=== PATIENT | female | born 1985 | race Caucasian/White ===

== ENCOUNTER 2016-04-11 14:55 | Inpatient (IN) | payer OTHER ==
[2016-04-11 16:08] VITALS: BMI 19.3
--- NOTE | 2016-04-11 17:10 | HP ---
Admission [facility] Chief Complaint: REHAB TX FOR DRUG DEPENDENCE Allergies/Adverse Reactions: Allergies Allergy/AdvReac Type Severity Reaction Status Date / Time No Known Allergies Allergy Verified 04/11/16 16:28 History of Present Illness: 31 Y/O FEMALE WITH A HX OF AMPHETAMINE DEPENDENCE AND ON SUBOXONE MAINTENANCE. Exam Limitations: No Limitations - Ebola screening Have you traveled outside of the country in the last 21 days: No Have you had contact with anyone from an Ebola affected area: No Have you been sick,other than usual withdrawal symptoms: No Do you have a fever: No - Review of Systems Constitutional: Chills, Loss of Appetite, Night Sweats, Changes in sleep, Unintentional Wgt. Loss EENT: reports: Blurred Vision, Tearing, Nose Congestion, Dental Problems (TEETH EXTRACTIONS/TOOTH IMPACTION REMOVED/WEARS BRACES) Respiratory: reports: Wheezing (SOMETIMES - WHEN SMOKING EXCESSIVELY OVER A PACK /DAY.) Cardiac: reports: Chest Pain, Lightheadedness, Palpitations, Chest Tightness ( DUE TO ANXIETY), Other (TIGHT THROAT) GI: reports: Diarrhea, Poor Appetite, Poor Fluid Intake, Abdominal cramping : reports: Dysuria (AND DARK URINE) Musculoskeletal: reports: Back Pain, Joint Pain, Muscle Pain, Neck Pain Integumentary: reports: Bruising (BLACK/BLUE ON LEFT WRIST/ANTECUBITAL SPACE.) Neuro: reports: Headache, Tremors, Unsteady Gait, Dizziness Endocrine: reports: No Symptoms Reported Hematology: reports: Anemia (TAKES IRON PILLS. BLOOD TRANSFUSION IN 2014 DUE TO STOMACH ULCER) Psychiatric: reports: Orientated x3, Agitated, Anxious, Depressed Other Systems: Reviewed and Negative Patient History - Patient Medical History Hx Anemia: Yes (TAKES IRON PILLS;BLOOD TRANSFUSION IN 2015.) Hx Asthma: No Hx Chronic Obstructive Pulmonary Disease (COPD): No Hx Cardiac Disorders: Yes (TACHYCARDIA) Hx Hypertension: Yes (LATELY BUT NOT ON BP MED.) Hx Hypercholesterolemia: No HX Cerebrovascular Accident: No Hx Seizures: No Hx Diabetes: No Hx Gastrointestinal Disorders: Yes (PUD SX) Hx Genitourinary Disorders: No Hx Sexually Transmitted Disorders: No Hx Renal Disease (ESRD): Yes (KIDNEY INFECTION 5 YRS AGO) Hx Thyroid Disease: No Hx Human Immunodeficiency Virus (HIV): No (NEGATIVE HX) Hx Hepatitis C: No Hx Depression: Yes (NOT DIAGNOSED; HX ANXIETY WITH TX) Hx Suicide Attempt: No (DENIES) Hx Bipolar Disorder: No Hx Schizophrenia: No - Patient Surgical History Past Surgical History: Yes Hx Neurologic Surgery: No Hx Cataract Extraction: No Hx Cardiac Surgery: No Hx Lung Surgery: No Hx Breast Surgery: No Hx Breast Biopsy: No Hx Abdominal Surgery: Yes (LAPAROSCOPIC SX DUE TO PUD IN 2012 AND 2014) Hx Appendectomy: No Hx Cholecystectomy: No Hx Genitourinary Surgery: No Hx Section: No Hx Orthopedic Surgery: No Hx Hysterectomy: No Anesthesia Reaction: No - PPD History Previous Implant?: Yes Documented Results: Negative w/o proof Implanted On Prior R Admission?: No PPD to be Administered?: Yes - Reproductive History Patient is a Female of Child Bearing Age (11 -55 yrs old): Yes Last Menstrual Period: 03/28/16 LMP comment: IRREGULARLY FREQUENT LATELY..BIWEEKLY SINCE FEBRUARY 2016 Patient : No - Smoking Cessation Smoking history: Current every day smoker Have you smoked in the past 12 months: Yes Aproximately how many cigarettes per day: 20 Hx Chewing Tobacco Use: No Initiated information on smoking cessation: Yes 'Breaking Loose' booklet given: 04/11/16 - Substance & Tx. History Hx Alcohol Use: No (DENIES) Hx Substance Use: Yes (AMPHETAMINE) Hx Substance Use Treatment: Yes (ON SUBOXONE TREATMENT) - Substances Abused ADDERALL Route: Oral Frequency: Daily Amount used: 60MG Age of first use: 29 Date of Last Use: 04/11/16 Family Disease History - Family Disease History Family Disease History: Diabetes: Grandparent ([id number];GM-DM-ALIVE.), Heart Disease: Grandparent Admission Physical Exam [facility] - Vital Signs Vital Signs: Vital Signs - 24 hr 04/11/16 15:58 Temperature 98.1 F Pulse Rate 113 H Respiratory 20 Rate Blood Pressure 143/95 - Physical General Appearance: Yes: Mild Distress, Irritable, Anxious HEENTM: Yes: EOMI, Normocephalic, ESTRADA Respiratory: Yes: Chest Non-Tender, Lungs Clear, Normal Breath Sounds, No Respiratory Distress Neck: Yes: Supple, Trachea in good position Cardiology: Yes: Regular Rhythm, S1, S2, Tachycardia Abdominal: Yes: Normal Bowel Sounds, Non Tender, Soft Genitourinary: Yes: Other (N/C) Back: Yes: Within Normal Limits Musculoskeletal: Yes: full range of Motion, Gait Steady Extremities: Yes: Normal Range of Motion, Non-Tender Neurological: Yes: swim instructor II-XII NML intact, Fully Oriented, Alert Integumentary: Yes: Dry, Warm Lymphatic: Yes: Within Normal Limits - Diagnostic (1) Methamphetamine dependence Current Visit: Yes Status: Chronic (2) Opioid dependence on agonist therapy Current Visit: Yes Status: Chronic Comment: SUBOXONE MAINTENANCE Cleared for Admission [facility] - Detox or Rehab Claeared for Rehab Admission: Yes [facility] Breath Alcohol Content Breath Alcohol Content: 0 Urine Pregancy Test - Result Urine Test Results: Negative- NO Line Present Urine Drug Screen - Results Drug Screen Negative: No Urine Drug Screen Results: AMP-Amphetamines
[2016-04-11] MEDS ORDERED: MAGNESIUM HYDROX 2400MG/30ML ORAL SUSPENSION 30 ML CUP PO PRN (17:37)
[2016-04-11] MEDS ORDERED: LOPERAMIDE HCL 2 MG CAPSULE PO PRN (17:37)
[2016-04-11] MEDS ORDERED: hydrOXYzine PAMOATE 25 MG CAPSULE (FP) PO PRN (17:37)
[2016-04-11] MEDS ORDERED: P-EPHED 60MG/TRIPROLIDI 2.5MG TABLET PO PRN (17:37)
[2016-04-11] MEDS ORDERED: MENTHOL/PHENOL 1 EACH UD MM PRN (17:37)
[2016-04-11] MEDS ORDERED: MAGNESIUM CITRATE 300 ML BOTTLE PO PRN (17:37)
[2016-04-11] MEDS ORDERED: ACETAMINOPHEN 325 MG TABLET (FP) PO PRN (17:37)
[2016-04-11] MEDS ORDERED: guaiFENesin/D-METHORPHAN HB 10 ML UNIT-DOSE CUPS PO PRN (17:37)
[2016-04-11] MEDS ORDERED: IBUPROFEN 400 MG TABLET (FP) PO PRN (17:37)
[2016-04-11] MEDS ORDERED: MAG HYDROX/AL HYDROX/SIMETH 30 ML UNIT-DOSE CUP PO PRN (17:37)
[2016-04-11] MEDS ORDERED: TUBERCULIN PPD 5 TU/0.1ML VIAL ID ONE (18:30)
[2016-04-11] MEDS: NICOTINE 21 MG/24 HOURS TOPICAL PATCH TD SCH (21:23)
[2016-04-11] MEDS: NICOTINE POLACRILEX 4 MG GUM BUC PRN (21:24)
[2016-04-11] MEDS: BUPRENORPHINE/NALOXONE 8 MG/2 MG FILM PACKET SL SCH (21:27)
[2016-04-11] MEDS: THIAMINE HCL 100 MG TABLET (FP) PO SCH (21:27)
[2016-04-11] MEDS ORDERED: diphenhydrAMINE HCL 50 MG CAPSULE PO PRN (22:00)
[2016-04-12] MEDS: BUPRENORPHINE/NALOXONE 8 MG/2 MG FILM PACKET SL SCH ×2 (09:44→21:10)
[2016-04-12] MEDS: PRENATAL VITAMINS W/ FOLIC ACID TABLET (FP) PO SCH (09:44)
[2016-04-12] MEDS: NICOTINE 21 MG/24 HOURS TOPICAL PATCH TD SCH (09:44)
[2016-04-12] MEDS: PANTOPRAZOLE 40 MG TABLET (FP) PO SCH (09:45)
[2016-04-12] MEDS: NICOTINE POLACRILEX 4 MG GUM BUC PRN (09:46)
[2016-04-12 09:49] LABS: URINE APPEARANCE CLEAR; URINE BILIRUBIN NEGATIVE (NEGATIVE); URINE BLOOD NEGATIVE (NEGATIVE); URINE COLOR YELLOW; URINE GLUCOSE (UA) NEGATIVE (NEGATIVE); URINE KETONE NEGATIVE (NEGATIVE); URINE LEUK ESTERASE NEGATIVE (NEGATIVE); URINE NITRITE NEGATIVE (NEGATIVE); URINE UROBILINOGEN NEGATIVE E.U./dl (0.2-1.0)
[2016-04-12 09:57] LABS: MCH 29.6 pg (25.7-33.7); MEAN CELL VOLUME 89.8 fl (80-96); MEAN PLT VOLUME 7.4 fl (7.5-11.1); PLATELET COUNT 343 K/MM3 (134-434); RDW 14.7 % (11.6-15.6); WHITE BLOOD COUNT 7.4 K/mm3 (4.0-10.0)
[2016-04-12 10:02] LABS: ALBUMIN 4.7 g/dl (3.4-5.0); ALK PHOS 59 U/L (45-117); ANION GAP 9 (8-16); BILIRUBIN,TOTAL 0.3 mg/dL (0.2-1.0); CALCIUM 9.6 mg/dL (8.5-10.1); CO2 29 mmol/L (21-32); CREATININE 0.6 mg/dL (0.55-1.02); GLUCOSE,RANDOM 66 mg/dL (74-106); SGOT/AST 6 U/L (15-37); SGPT/ALT 17 U/L (12-78); TOT PROT 7.2 g/dl (6.4-8.2)
[2016-04-12 10:08] LABS: URINE PROTEIN 3+ (NEGATIVE)
[2016-04-12 10:47] LABS: URINE BACTERIA RARE /hpf (NONE SEEN); URINE HYALINE CAST 18 /lpf; URINE MUCUS MANY; URINE RBC 2 /hpf (0-3); URINE WBC 5 /hpf (3-5)
[2016-04-12 11:05] LABS: HIV 1 & 2 AB NEGATIVE; HIV 1 AGp24 NEGATIVE
--- NOTE | 2016-04-12 14:42 | PN ---
[facility] Progress Note Note: PT. HAS A CALLUS LEFT HEEL THAT PEALED OFF. EXAM : BLEEDING,THE AREA IS CLEAN P : BACITRACIN OIN'T BID
[2016-04-12] MEDS: THIAMINE HCL 100 MG TABLET (FP) PO SCH (21:10)
[2016-04-12] MEDS: BACITRACIN 0.9 GM PACKET TP SCH (21:12)
--- NOTE | 2016-04-12 23:34 | EKG ---
Test Reason : Blood Pressure : / mmHG Vent. Rate : 076 BPM Atrial Rate : 076 BPM P-R Int : 112 ms QRS Dur : 084 ms QT Int : 380 ms P-R-T Axes : 043 072 -10 degrees QTc Int : 427 ms NORMAL SINUS RHYTHM NONSPECIFIC T WAVE ABNORMALITY ABNORMAL ECG WHEN COMPARED WITH ECG OF 11-APR-2016 20:56, NO SIGNIFICANT CHANGE WAS FOUND Confirmed by LINDA CARVAJAL MD ([id number]) on 04/12/2016 11:33:59 PM Referred By: Confirmed By:LINDA CARVAJAL MD
[2016-04-13 06:56] VITALS: TEMP 97.1
[2016-04-13] MEDS: NICOTINE 21 MG/24 HOURS TOPICAL PATCH TD SCH (09:32)
[2016-04-13] MEDS: BUPRENORPHINE/NALOXONE 8 MG/2 MG FILM PACKET SL SCH (09:32)
[2016-04-13] MEDS: PRENATAL VITAMINS W/ FOLIC ACID TABLET (FP) PO SCH (09:32)
[2016-04-13] MEDS: PANTOPRAZOLE 40 MG TABLET (FP) PO SCH (09:32)
[2016-04-13] MEDS: BACITRACIN 0.9 GM PACKET TP SCH (09:33)
[2016-04-13] MEDS: NICOTINE POLACRILEX 4 MG GUM BUC PRN (09:34)
[2016-04-13 09:52] VITALS: BP 111/71; PULSE 87
--- NOTE | 2016-04-13 10:01 | HP ---
Psychiatrist Admission - Data Date of interview: 04/13/16 Admission source: [facility] Identifying data: This is the first admission to [facility] inpatient [facility] for this 31 yo single female ,domiciled,unemployed, supported by parents. Medical History: H/O bleeding peptic ulcer-currently on Prilosec. 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 Physical/Sexual Abuse/Trauma History: denies Vital Signs: Vital Signs - 24 hr 04/12/16 04/13/16 04/13/16 17:38 00:30 03:30 Temperature Pulse Rate 82 Respiratory 16 16 Rate Blood Pressure 97/65 04/13/16 04/13/16 06:55 09:51 Temperature 97.1 F L Pulse Rate 80 87 Respiratory 18 Rate Blood Pressure 97/67 111/71 Allergies/Adverse Reactions: Allergies Allergy/AdvReac Type Severity Reaction Status Date / Time No Known Allergies Allergy Verified 04/11/16 16:28 Date of last physical exam: 04/11/16 Concur with the findings of this exam: Yes - Substance Abuse/Tx History Hx Alcohol Use: No (socially) Hx Substance Use: Yes (reports started pain killers since 22 yo,Adderall since 2016) Substance Use Type: Opiates, Prescribed Hx Substance Use Treatment: Yes (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 ) - Admission Criteria Previous failed treatment: Yes Poor recovery environment: Yes Comorbidities: Yes Lacks judgement: Yes Mental Status Exam - Mental Status Exam Alert and Oriented to: Time, Place, Person Cognitive Function: Grossly Intact Patient Appearance: Well Groomed Mood: Sad, Anxious Affect: Appropriate Patient Behavior: Fatigued, Cooperative Speech Pattern: Clear Voice Loudness: Normal Thought Process: Goal Oriented Thought Disorder: Not Present Hallucinations: Denies Suicidal Ideation: Denies Homicidal Ideation: Denies Insight/Judgement: Fair Sleep: Well Appetite: Good Muscle strength/Tone: Normal Gait/Station: Normal Psychiatric Findings - Problem List ([place] 1, 2,3) (1) Methamphetamine dependence Status: Suspected (2) Opioid dependence on agonist therapy Status: Chronic Comment: SUBOXONE MAINTENANCE (3) ADHD (attention deficit hyperactivity disorder), inattentive type Status: Suspected - Initial Treatment Plan Initial Treatment Plan: Will monitor progress.
--- NOTE | 2016-04-13 13:20 | EKG ---
Test Reason : Blood Pressure : / mmHG Vent. Rate : 112 BPM Atrial Rate : 112 BPM P-R Int : 112 ms QRS Dur : 074 ms QT Int : 334 ms P-R-T Axes : 073 070 -18 degrees QTc Int : 455 ms SINUS TACHYCARDIA RIGHT ATRIAL ENLARGEMENT T WAVE ABNORMALITY, CONSIDER INFERIOR ISCHEMIA ABNORMAL ECG NO PREVIOUS ECGS AVAILABLE Confirmed by MARYANA JONES MD ([id number]) on 04/13/2016 1:20:23 PM Referred By: Confirmed By:MARYANA JONES MD
--- NOTE | 2016-04-14 12:26 | PN ---
[facility] Progress Note Note: Patient decided to leave the program AMA despite our strong recommendations to continue her treatment on inpatient basis.She was in stable condition on /03/19.See staff notes for details.
== END 2016-04-13 17:15 | disposition left against medical advice (07) | DRG 770 ==
LOC: YASAS 14:55 → Y3E 16:43
PROVIDERS: ADMIT Psychiatry & Neurology Psychiatry; ATTEND Psychiatry & Neurology Psychiatry
PROC: HZ2ZZZZ Detoxification Services for Substance Abuse Treatment (ICD-10-PCS; principal; 2016-04-13)
DX: F11.20 Opioid dependence, uncomplicated (principal); F15.20 Other stimulant dependence, uncomplicated; F90.9 Attention-deficit hyperactivity disorder, unspecified type; F41.9 Anxiety disorder, unspecified; I10 Essential (primary) hypertension; D64.9 Anemia, unspecified
CPT/HCPCS: 36415; 80053; 81003; 81015; 85027; 86593; 87389; 93005; 93010